=== PATIENT | female | born 1950 | race Caucasian/White ===

== ENCOUNTER 2021-02-13 22:34 | Emergency (ER) | payer OTHER ==
[~2021-02-13] VITALS: Ht 162.6 cm; Wt 72.6 kg
[2021-02-14] MEDS ORDERED: GENTAMICIN OPH3.5 G1 OPHTHALMIC (00:41)
[2021-02-14 00:54] VITALS: BP 160/85
== END 2021-02-14 00:45 | disposition home or self-care (01) ==
LOC: ER 22:34
DX: T15.11XA Foreign body in conjunctival sac, right eye, initial encounter (principal); H57.11 Ocular pain, right eye; I10 Essential (primary) hypertension; X58.XXXA Exposure to other specified factors, initial encounter; Y93.89 Activity, other specified; Y92.89 Other specified places as the place of occurrence of the external cause; Y99.8 Other external cause status